=== PATIENT | male | born 1990 | race African-American/Black ===

== ENCOUNTER 2020-03-09 09:28 | Emergency (ER) | payer SELFPAY ==
[2020-03-09 09:35] VITALS: BP 133/67
[2020-03-09] MEDS ORDERED: CEFTRIAXONE INJ 250 MG VIAL IM ONE (10:18)
[2020-03-09] MEDS ORDERED: LIDOCAINE 1% INJ-PF (10 MG/ML) 30 ML SDV NEB ONE (10:18)
[2020-03-09] MEDS ORDERED: AZITHROMYCIN 250 MG TABLET PO ONE (10:18)
[2020-03-09 10:47] LABS: APPEARANCE,URINE CLEAR; BILIRUBIN,URINE NEGATIVE (NEGATIVE); COLOR,URINE YELLOW; GLUCOSE, URINE NEGATIVE (NEGATIVE); KETONES,URINE NEGATIVE (NEGATIVE); LEUKOCYTE ESTERASE,URINE NEGATIVE (NEGATIVE); NITRITE,URINE NEGATIVE (NEGATIVE); PROTEIN,URINE NEGATIVE (NEGATIVE); URINE SPECIFIC GRAVITY 1.016; UROBILINOGEN,URINE NEGATIVE mg/dL (<2.0)
--- NOTE | 2020-03-09 10:50 | ER Document Report ---
ED General - General Chief Complaint: Penile Discharge Stated Complaint: POSSIBLE STD EXPOSURE - HPI Notes: Chief Complaint: Penile discharge Historian: History obtained from patient HPI: This is a 29-year-old male presents to the ER complaining of penile discharge for the past few days. Patient admits to recent unprotected sex with a new partner. penile discharge was clear and mild. no dysuria. Symptoms have since resolved today. He denies genital rash or lesions, testicular pain or swelling, abdominal pain, flank pain, nausea vomiting, joint pain, or fever. No treatments tried. Patient also request Covid test to return to work. Says he was positive Covid 1 week ago though his symptoms started on Thanksgiving. He only mild nasal congestion and loss of smell he says that has since returned a few days ago and his employer requires him to get a Covid test to return to work. He denies fevers, chest pain, shortness of breath, cough, or any other covid related symptoms. ROS: Constitutional: no fevers. HEENT: no HERNANDEZ, sore throat, or vision changes. CV: no chest pain or palpitations. Resp: no cough or SOB. GI: no abdominal pain, or n/v/d. : Penile discharge MSK: no back pain, no joint swelling/redness. Skin: no rashes or itching. Neuro: no seizures, weakness, numbness, or confusion. Hematological: no ecchymosis or easy bleeding. Endocrine: no polyuria/polydipsia, no heat/cold intolerance. Psych: no SI/HI, AH/VH or memory loss. PMHx: Reviewed and agree as charted by RN. PSHx: Reviewed and agree as charted by RN. SOCHx: Reviewed and agree as charted by RN. FHX: No significant familial comorbid conditions directly related to patient complaint Current Medications: Reviewed and agree with the patient medications as charted by the RN. Allergies: Reviewed and agree with the listed allergies as charted by the RN Physical Exam: Vitals: Reviewed in chart as documented by RN. General: Alert and in NAD. Head: Normocephalic; atraumatic Eyes: PERRLA, Conjunctivae clear sclerae non-icteric bilat ENT: no soft palate swelling or uvular deviation Neck: trachea midline, no unilateral swelling/tenderness/lymphadenopathy CV: RRR, no M/R/G; symmetric distal pulses Resp: respirations even and unlabored, CTA bilat. GI: abd soft and nondistended. NTTP. normal BS. no masses/HSM. no CVAT bilat - pt declined MSK: FROM of all extremities. No midline CTL spine tenderness/deformity Skin: warm, moist, good turgor. no rash/lesions Neuro: Alert and oriented X 4. following CN 2-12 intact. no unilateral weakness/numbness Psych: No SI/HI or AH/VH. ED Results: Medical Decision-Making: differential- sti, levon/chlam, herpes, syphilis, trich, orchitis, epididymitis, hpv, pyelonephritis, UTI, cysitis, kidney stone, covid, ect plan- will get UA and g/c culture. Covid swab also ordered. will empirically treat pt w/ azithro and rocephin for STI coverage at pts request. Sexual precautions discussed. He is to inform all partners to get tested and/or treated if he is positive for an STD. No sexual contact for 10 days plus no symptoms. Safe sex education discussed patient is to always use condoms. PCP follow-up in 1 week return factors discussed Past Medical History - Social History Smoking Status: Unknown if Ever Smoked Family History: Reviewed & Not Pertinent Physical Exam - Vital signs Vitals: Temp Pulse Resp BP Pulse Ox 98.0 F 71 18 133/67 H 99 03/09/20 09:35 03/09/20 09:35 03/09/20 09:35 03/09/20 09:35 03/09/20 09:35 Course - Vital Signs Vital signs: Temp Pulse Resp BP Pulse Ox 98.0 F 71 18 133/67 H 99 03/09/20 09:35 03/09/20 09:35 03/09/20 09:35 03/09/20 09:35 03/09/20 09:35 - Laboratory Results Critical Laboratory Results Reviewed: No Critical Results - Radiology Results Critical Radiology Results Reviewed: No Critical Results Discharge - Discharge Clinical Impression: Possible exposure to STD Condition: Stable Disposition: HOME, SELF-CARE Additional Instructions: Avoid sexual contact for 10 days plus resolved symptoms. Always practice safe sex with condoms. We will call you if your STD checks are positive. Informed all partners to get tested and/or treated if you are positive. Follow-up with your doctor in 1 week for recheck return to the ER if your condition worsens Referrals: KRISTI LINTON MD [[facility]ED STAFF] - Follow up as needed
[2020-03-09 11:28] LABS: CHLAM PCR DETECTED (NOT DETECT)
== END 2020-03-09 11:34 | disposition home or self-care (01) ==
LOC: ER 09:28
DX: Z20.2 Contact with and (suspected) exposure to infections with a predominantly sexual mode of transmission (principal); R36.9 Urethral discharge, unspecified; Z20.828 Contact with and (suspected) exposure to other viral communicable diseases
CPT/HCPCS: 99284; 96372; 87635; 81001; 87491; 87591; J3490; J0696; C9803